=== PATIENT | male | born 1975 | race Caucasian/White ===

== ENCOUNTER 2016-06-17 17:47 | Observation (INO) | payer MEDICAID ==
[2016-06-17 17:47] VITALS: BMI 31.0
[2016-06-17 17:51] VITALS: BP 156/84; PULSE 90; RESP 16; TEMP 98.5; O2SAT 100
[2016-06-17 19:09] LABS: BASO # 0.1 K/uL (0.0-0.2); EOS % 0.2 % (0.0-4.0); LYMPH # 3.7 K/uL (1.0-4.3); LYMPH % 43.5 % (20.0-40.0); MEAN CELL VOLUME 80.4 fl (80.0-94.0); MEAN CORPUSCULAR HEMOGLOBIN 25.7 pg (27.0-31.0); MEAN PLATELET VOLUME 9.9 fl (7.2-11.7); MONO # 0.7 K/uL (0.0-0.8); MONO % 8.4 % (0.0-10.0); NEUT % 46.9 % (50.0-75.0); PLATELET COUNT 115 K/uL (130-400); RED CELL DISTRIBUTION WIDTH 20.9 % (11.5-14.5); WHITE BLOOD COUNT 8.5 K/uL (4.8-10.8)
[2016-06-17 19:10] LABS: ALKALINE PHOSPHATASE 127 U/L (38-126); ALT/SGPT 74 U/L (21-72); AST/SGOT 205 U/L (17-59); BILIRUBIN,TOTAL 1.1 mg/dl (0.2-1.3); BLOOD UREA NITROGEN 5 mg/dl (9-20); CALCIUM 8.3 mg/dL (8.4-10.2); CARBON DIOXIDE 30 mmol/L (22-30); CHLORIDE 108 mmol/L (98-107); GFR AFRICAN-AMERICAN > 60; GLUCOSE,RANDOM 110 mg/dL (75-110); POTASSIUM 3.5 MMOL/L (3.6-5.0); SODIUM 151 mmol/l (132-148); TOTAL PROTEIN 7.6 G/DL (6.3-8.2)
--- NOTE | 2016-06-17 19:18 | ED PDOC ---
HPI: General Adult Time Seen by Provider: 06/17/16 18:11 Chief Complaint (Nursing): Abnormal Skin Integrity History Per: Patient Additional Complaint(s): Pt. states 1 week ago he fell down some steps. Pt. states he was intoxicated at the time and he injured his R flank and his R arm. Pt. states he was seen in [facility] ED 3 days after and had x-rays of his R forearm done and was told it was infected. He was prescribed Doxycycline without relief prompting ED visit today. Pt. admits to drinking alcohol today. Pt.'s girlfriend also states that when pt. fell down 3 days ago he lost consciousness for approximately 30 minutes. Reports that he has not had headache. Pt. admits to drinking alcohol today. Denies N/V/D, fever, chest pain, SOB, abdominal pain. Past Medical History Reviewed: Historical Data, Nursing Documentation, Vital Signs Vital Signs: Last Vital Signs Temp 98.5 F 06/17/16 17:49 Pulse 90 06/17/16 17:49 Resp 16 06/17/16 17:49 BP 156/84 H 06/17/16 17:49 Pulse Ox 100 06/17/16 22:43 - Medical History PMH: Asthma, Hepatitis (C) Denies: HIV, HTN, Chronic Kidney Disease, Seizures, Sexually Transmitted Disease - Family History Family History: States: No Known Family Hx - Immunization History Hx Tetanus Toxoid Vaccination: Yes Hx Influenza Vaccination: Yes Hx Pneumococcal Vaccination: No - Home Medications Home Medications: Ambulatory Orders Medication Instructions Recorded Doxycycline Hyclate 100 mg PO BID #14 cap 06/14/16 - Allergies Allergies/Adverse Reactions: Allergies Allergy/AdvReac Type Severity Reaction Status Date / Time acetaminophen [From Tylenol] Allergy SHORTNESS Verified 06/17/16 17:48 OF BREATH ibuprofen [From Motrin] AdvReac SHORTNESS Verified 06/17/16 17:48 OF BREATH Review of Systems ROS Statement: Except As Marked, All Systems Reviewed And Found Negative Musculoskeletal: Positive for: Arm Pain, Back Pain Physical Exam - Reviewed Nursing Documentation Reviewed: Yes Vital Signs Reviewed: Yes - Physical Exam Appears: Positive for: Well, Non-toxic, No Acute Distress Head Exam: Positive for: ATRAUMATIC, NORMAL INSPECTION, NORMOCEPHALIC Skin: Positive for: Normal Color, Warm. Negative for: Rash Eye Exam: Positive for: EOMI, Normal appearance, PERRL ENT: Positive for: Normal ENT Inspection Neck: Positive for: Normal, Painless ROM Cardiovascular/Chest: Positive for: Regular Rate, Rhythm, Chest Non Tender Respiratory: Positive for: CNT, Normal Breath Sounds Pulses-Radial (L): 2+ Pulses-Radial (R): 2+ Gastrointestinal/Abdominal: Positive for: Normal Exam, Bowel Sounds, Soft, Other (no ecchymosis to abdomen). Negative for: Tenderness Back: Positive for: Normal Inspection, R CVA Tenderness (with small ecchymotic area to CVA). Negative for: L CVA Tenderness, Vertebral Tenderness Extremity: Positive for: Normal ROM, Capillary Refill (< 2 seconds of RUE), Other (circumferential ecchymosis and swelling noted to R forearm with 3cm x 3cm non-fluctuant ecchymotic mass on RUE) Neurologic/Psych: Positive for: Alert, Oriented - Laboratory Results Result Diagrams: 06/17/16 18:56 06/17/16 18:56 - ECG ECG: Positive for: Interpreted By Me ECG Rhythm: Positive for: Sinus Rhythm. Negative for: ST/T Changes O2 Sat by Pulse Oximetry: 100 ED OBSERVATION Date of observation admission: 06/17/16 Time of observation admission: 19:22 - Observation admission statement Patient is being placed in observation because:: ETOH, fall - Progress Note Progress Note: 06/17/16 19:[address] R upper extremity w/ IV contrast, duplex RUE, CT head and c- spine w/o contrast, CT abd/pelvis w/ IV contrast ordered. 06/17/16 19:40 ETOH [id number] Disposition - Clinical Impression Clinical Impression: Fall, Hematoma of arm, Contusion, flank, Alcohol abuse - Patient ED Disposition Is Patient to be Admitted: Transfer of Care (Signed out to Lisa CHAMBERS pending CT results and sobriety) - Disposition Disposition Time: 20:00 Condition: STABLE
[2016-06-17 19:25] LABS: ALCOHOL SERUM 494 mg/dl (0-10)
[2016-06-17] MEDS ORDERED: Sodium Chloride 0.9% 50 ML IV ONE (20:05)
[2016-06-17] MEDS ORDERED: Iohexol 300 100 ML IJ ONE (20:05)
[2016-06-17 20:36] LABS: BASOPHIL 1 % (0-2); NEUTROPHIL 59 % (42-75); TOTAL CELLS COUNTED 100
[2016-06-17 20:37] LABS: LARGE PLATELETS PRESENT
--- NOTE | 2016-06-17 20:41 | US ---
EXAM: US Duplex Right Upper Extremity Veins CLINICAL HISTORY: 40 years old, male; Injury or trauma; Fall; Initial encounter; Blunt trauma (contusions or hematomas); Right; Upper extremity, lower arm or forearm level; Vessel not specified; Injury date: 2 days ago TECHNIQUE: Real-time ultrasound scan of the veins of the right upper extremity with color Doppler flow, spectral waveform analysis and compression. EXAM DATE/TIME: 06/17/2016 6:40 PM COMPARISON: No relevant prior studies available. FINDINGS: Flow is seen in the right internal jugular, subclavian, axillary, brachial, basilic, cephalic, ulnar, and radial veins. There is normal compressibility of the right internal jugular, subclavian, axillary, brachial, basilic, and cephalic veins. Scanning in the right forearm, below the elbow, in the area of the palpable abnormality, demonstrates an oval-shaped masslike area measuring 2.5 x 1.1 x 2.4 cm. This has well-defined margins, and is heterogeneous in echogenicity, demonstrating hypoechoic and echogenic areas. It is located 2 mm beneath the skin surface. It does not have significant flow within it on color imaging. IMPRESSION: No evidence of deep venous thrombosis in the right arm. Scanning in the area of palpable abnormality, in the right forearm, demonstrates a 2.5 x 2.4 cm solid, oval shaped, superficial masslike area. In the setting of recent trauma, this could represent a hematoma. Followup is recommended to definitely exclude a soft tissue mass. See above for remaining findings.
--- NOTE | 2016-06-17 20:54 | CT ---
EXAM: CT Right Upper Extremity Without Intravenous Contrast, Forearm CLINICAL HISTORY: 40 years old, male; Signs and symptoms; Mass or lump; Arm, lower; Right; Additional info: Trauma TECHNIQUE: Axial computed tomography images of the right forearm without intravenous contrast. This CT exam was performed using one or more of the following dose reduction techniques: automated exposure control, adjustment of the mA and/or kV according to patient size, and/or use of iterative reconstruction technique. Coronal and sagittal reformatted images were created and reviewed. EXAM DATE/TIME: 06/17/2016 6:40 PM COMPARISON: No relevant prior studies available. FINDINGS: LIMITATIONS: Exam is somewhat limited by mild streak/motion artifact. BONES/JOINTS: No acute fractures are seen. No evidence of acute dislocation. SOFT TISSUES: 3 x 3 x 1.5 cm oval-shaped, masslike area of soft tissue density is seen in the proximal forearm soft tissues laterally, localized to the subcutaneous fat. This has a CT attenuation of 40 Hounsfield units, and it is suspicious for a resolving hematoma, in the setting of recent trauma. Also suspect an additional hematoma in the nearby proximal forearm musculature, which has a heterogeneous (mixed hyperdense and hypodense) appearance. This is difficult to measure, but measures about 6 cm. It is best seen on images 108-135 of series 4. IMPRESSION: - No acute fractures identified. - Findings suspicious for intramuscular hemorrhage involving the proximal forearm musculature. - Finding suspicious for a 3 x 3 cm subcutaneous hematoma in the proximal forearm soft tissues. - See above for remaining findings.
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
--- NOTE | 2016-06-18 10:01 | RAD ---
HISTORY: fall COMPARISON: No prior. FINDINGS: LUNGS: No active pulmonary disease. PLEURA: No significant pleural effusion identified, no pneumothorax apparent. CARDIOVASCULAR: Normal. OSSEOUS STRUCTURES: No significant abnormalities. VISUALIZED UPPER ABDOMEN: Normal. OTHER FINDINGS: None. IMPRESSION: No active disease.
== END 2016-06-17 22:46 | disposition home or self-care (01) ==
LOC: H.ER 17:47 → H.EROBSV 18:41
PROVIDERS: ADMIT Emergency Medicine; ATTEND Emergency Medicine
DX: S50.11XA Contusion of right forearm, initial encounter (principal); W10.9XXA Fall (on) (from) unspecified stairs and steps, initial encounter; Y93.9 Activity, unspecified; Y92.9 Unspecified place or not applicable; F10.10 Alcohol abuse, uncomplicated; Y90.8 Blood alcohol level of 240 mg/100 ml or more; J45.909 Unspecified asthma, uncomplicated; Z88.6 Allergy status to analgesic agent; B19.20 Unspecified viral hepatitis C without hepatic coma
CPT/HCPCS: 70450; 71010; 72125; 73200; 74177; 80053; 85025; 85610; 85730; 86850; 86900; 93971; 99282; G0378; G0480; Q9967